=== PATIENT | female | born 1960 ===

== ENCOUNTER 2017-11-21 11:46 | Inpatient (IN) | payer OTHER ==
[2017-11-21 11:56] VITALS: BMI 33.2
[2017-11-21 11:59] VITALS: RESP 20
[2017-11-21] MEDS ORDERED: Sodium Chloride 0.9% 1,000 ML IV ONE (12:29)
[2017-11-21] MEDS ORDERED: Clindamycin 300 MG in Sodium Chloride 0.9% 50 ML IVPB STA (12:30)
[2017-11-21 12:46] LABS: BASO # 0.1 K/uL (0.0-0.2); BASO % 0.9 % (0.0-2.0); EOS % 0.2 % (0.0-4.0); LYMPH % 19.4 % (20.0-40.0); MEAN CELL VOLUME 89.7 fL (81.0-99.0); MEAN CORPUSCULAR HEMOGLOBIN 30.9 pg (27.0-31.0); MEAN CORPUSCULAR HGB CONC 34.5 g/dL (33.0-37.0); MEAN PLATELET VOLUME 9.4 fL (7.2-11.7); MONO # 1.2 K/uL (0.0-0.8); MONO % 7.4 % (0.0-10.0); NEUT # 11.3 K/uL (1.8-7.0); NEUT % 72.1 % (50.0-75.0); RBC 4.2 Mil/uL (3.80-5.20); WHITE BLOOD COUNT 15.7 K/uL (4.8-10.8)
[2017-11-21] MEDS ORDERED: Sodium Chloride 0.9% 1,000 ML ONE (12:48)
[2017-11-21 13:02] LABS: ALB/GLOB RATIO 1.1 (1.0-2.1); ALT/SGPT 18 U/L (9-52); AST/SGOT 43 U/L (14-36); BLOOD UREA NITROGEN 12 mg/dL (7-17); CALCIUM 9.2 mg/dl (8.6-10.4); GFR AFRICAN-AMERICAN > 60; GFR NON-AFRICAN AMERICAN > 60
[2017-11-21] MEDS ORDERED: Iodixanol 320 MG/ML 100 ML BOTTLE IV ONE (14:30)
--- NOTE | 2017-11-21 14:32 | C.PDOC ---
History Of Present Illness 57 y/o female presents to ED with c/o throat pain for 1 week. Patient states she was seen at [facility] 2 days ago, diagnosed with a peritonsillar abscess and had it drained in the ER and was discharged with antibiotics. Patient states pain persisted today and went to see PMD who advised she come to ed for further evaluation. Admits to decreased po intake secondary to pain. Denies fever, sob, chest pain, neck pain or headache. Time Seen by Provider: 11/21/17 12:07 Chief Complaint (Nursing): ENT Problem History/Exam Limitations: None Onset/Duration Of Symptoms: Days Current Symptoms Are (Timing): Still Present Past Medical History Reviewed: Historical Data, Nursing Documentation, Vital Signs Vital Signs: Last Vital Signs Temp 98.0 F 11/23/17 08:10 Pulse 58 L 11/23/17 08:10 Resp 20 11/23/17 08:10 BP 167/78 H 11/23/17 08:10 Pulse Ox 99 11/23/17 08:10 - Medical History PMH: No Chronic Diseases Surgical History: No Surg Hx Family History: States: No Known Family Hx - Social History Hx Alcohol Use: No Hx Substance Use: No - Immunization History Hx Tetanus Toxoid Vaccination: No Hx Influenza Vaccination: No Hx Pneumococcal Vaccination: No Review Of Systems Constitutional: Negative for: Fever, Chills ENT: Positive for: Throat Pain Gastrointestinal: Negative for: Nausea, Vomiting Musculoskeletal: Negative for: Neck Pain Skin: Negative for: Rash Physical Exam - Physical Exam Appears: Non-toxic, Other (uncomfortable) Skin: Warm, Dry, No Rash Head: Atraumatic, Normacephalic Eye(s): bilateral: Normal Inspection, EOMI Nose: Normal Oral Mucosa: Moist Throat: Erythema (right sided peritonsillar), No Drooling, Other (right sided peritonsillar swelling) Neck: Normal ROM, Supple Chest: Symmetrical Cardiovascular: Rhythm Regular Respiratory: Normal Breath Sounds, No Accessory Muscle Use, No Rales, No Rhonchi , No Wheezing Gastrointestinal/Abdominal: Soft, No Tenderness, No Guarding, No Rebound Extremity: Normal ROM Neurological/Psych: Oriented x3, Normal Speech, Normal Cognition ED Course And Treatment - Laboratory Results Result Diagrams: 11/21/17 12:42 11/21/17 12:42 O2 Sat by Pulse Oximetry: 98 (RA) Pulse Ox Interpretation: Normal - CT Scan/US CT neck Other Rad Studies (CT/US): Read By Radiologist, Radiology Report Reviewed CT/US Interpretation: PROCEDURE: CT NECK WITH CONTRAST. HISTORY: r/o peritonsillar abscess. COMPARISON: 474.0. TECHNIQUE: CT of the neck with intravenous contrast. Coronal and sagittal reformats generated. Intravenous contrast dose: 100 mL Visipaque. Radiation dose: DLP 474.09 mGy-cm. This CT exam was performed using one or more of the following dose reduction techniques : Automated exposure control, adjustment of the mA and/or kV according to patient size, and/or use of iterative reconstruction technique. FINDINGS: NASOPHARYNX: There is mild mass effect on the right posterior nasopharynx. No evidence of narrowing of the LV. SUPRAHYOID NECK: There is a 1.6 x 1.2 x 2.5 cm low-density mass with thick irregular peripheral rim in the right peritonsillar region and effacement of the right parapharyngeal fat. . There is also marked enlargement of the right palatine tonsil with mass effect and moderate narrowing of the oropharyngeal airway. There is also moderate enlargement of the lingual and left palatine tonsil. The oral cavity is obscured by extensive dental amalgam artifacts. No evidence of retropharyngeal fluid collection. INFRAHYOID NECK: No mass or enhancement in the larynx, hypopharynx, and supraglottic space. Vocal cords intact. GLANDS: Parotid and submandibular glands unremarkable. The right thyroid lobe and isthmus are normal. There is mild enlargement of the left thyroid lobe with retrosternal extension and an apparent 4.0 x 3.5 cm lower density nodule in the lower pole of the left thyroid gland. The trachea is deviated to the right without luminal narrowing. LYMPH NODES: There are enlarged right anterior and posterior triangle lymph nodes and enlarged left anterior triangle lymph nodes. CERVICAL SPINE: No fracture or focal lesion. Multilevel degenerative disc disease in the lower cervical spine. VASCULAR STRUCTURES: Unremarkable. OTHER FINDINGS: None. IMPRESSION: 1. Findings are compatible with acute tonsillitis and 1.6 x 1.2 x 2.5 cm right peritonsillar abscess with resultant mass effect, moderate narrowing of the oropharyngeal airway and reactive cervical lymphadenopathy, worse on the right. 2. Mild enlargement of the left thyroid lobe and retrosternal extension with a large nodule in the lower pole. Important findings were discussed with Dr. Flower in the ER on 11/21/2017 at 3:40 p.m. Progress Note: PT was seen and evaluated by at bedside requested patient to have CT scan. AFter CT, pt had bedside I&D preformed by Dr Jameson. CAse discussed with Dr Arredondo, agreed upon plan and admission. 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 - Scribe Statement The provider has reviewed the documentation as recorded by the Terrellibmarietta Lora All medical record entries made by the Payton were at my direction and personally dictated by me. I have reviewed the chart and agree that the record accurately reflects my personal performance of the history, physical exam, medical decision making, and the department course for this patient. I have also personally directed, reviewed, and agree with the discharge instructions and disposition.
--- NOTE | 2017-11-21 15:44 | CT ---
PROCEDURE: CT NECK WITH CONTRAST HISTORY: r/o peritonsillar abscess COMPARISON: 474.0 TECHNIQUE: CT of the neck with intravenous contrast. Coronal and sagittal reformats generated. Intravenous contrast dose: 100 mL Visipaque Radiation dose: DLP 474.09 mGy-cm This CT exam was performed using one or more of the following dose reduction techniques: Automated exposure control, adjustment of the mA and/or kV according to patient size, and/or use of iterative reconstruction technique. FINDINGS: NASOPHARYNX: There is mild mass effect on the right posterior nasopharynx. No evidence of narrowing of the LV. SUPRAHYOID NECK: There is a 1.6 x 1.2 x 2.5 cm low-density mass with thick irregular peripheral rim in the right peritonsillar region and effacement of the right parapharyngeal fat. . There is also marked enlargement of the right palatine tonsil with mass effect and moderate narrowing of the oropharyngeal airway. There is also moderate enlargement of the lingual and left palatine tonsil. The oral cavity is obscured by extensive dental amalgam artifacts. No evidence of retropharyngeal fluid collection. INFRAHYOID NECK: No mass or enhancement in the larynx, hypopharynx, and supraglottic space. Vocal cords intact. GLANDS: Parotid and submandibular glands unremarkable. The right thyroid lobe and isthmus are normal. There is mild enlargement of the left thyroid lobe with retrosternal extension and an apparent 4.0 x 3.5 cm lower density nodule in the lower pole of the left thyroid gland. The trachea is deviated to the right without luminal narrowing LYMPH NODES: There are enlarged right anterior and posterior triangle lymph nodes and enlarged left anterior triangle lymph nodes. CERVICAL SPINE: No fracture or focal lesion. Multilevel degenerative disc disease in the lower cervical spine. VASCULAR STRUCTURES: Unremarkable. OTHER FINDINGS: None. IMPRESSION: 1. Findings are compatible with acute tonsillitis and 1.6 x 1.2 x 2.5 cm right peritonsillar abscess with resultant mass effect, moderate narrowing of the oropharyngeal airway and reactive cervical lymphadenopathy, worse on the right. 2. Mild enlargement of the left thyroid lobe and retrosternal extension with a large nodule in the lower pole. Important findings were discussed with Dr. Flower in the ER on 11/21/2017 at 3:40 p.m.
[2017-11-21] MEDS ORDERED: Pneumococcal 23-Valent Vaccine IM ONE (18:13)
[2017-11-21] MEDS: Dextrose 5%/0.9% NS 1,000 ML IV SCH (18:35)
[2017-11-21] MEDS ORDERED: Clindamycin 600mg/50ml D5W 600 MG/50 ML VIAL IVPB SCH (19:00)
[2017-11-21] MEDS: Clindamycin 600mg/50ml NS 600 MG/50 ML BAG IVPB SCH (20:19)
[2017-11-21] MEDS: Acetaminophen 650mg/20.3ml solution UD PO PRN (22:11)
--- NOTE | 2017-11-21 23:42 | OP ---
PROCEDURE DATE: 11/21/2017 PREOPERATIVE DIAGNOSIS: Right peritonsillar abscess. POSTOPERATIVE DIAGNOSIS: Right peritonsillar abscess. PROCEDURE: Incision and drainage of right peritonsillar abscess. SURGEON: Dr. Connor Jameson. SIGNIFICANT FINDINGS: Right peritonsillar abscess. DESCRIPTION OF PROCEDURE: The patient was placed in a seated position, the right peritonsillar area was injected with lidocaine with epinephrine. An incision was made in the right peritonsillar area using an #11 blade. Sharp dissection was done, pus was noted to be coming down. Clamp was used to break up further loculations. Bleeding was controlled with time. The patient tolerated the procedure well. Connor Jameson MD
[2017-11-22] MEDS: Clindamycin 600mg/50ml NS 600 MG/50 ML BAG IVPB SCH ×3 (03:22→20:00)
[2017-11-22] MEDS: Dextrose 5%/0.9% NS 1,000 ML IV SCH ×3 (03:32→18:05)
[2017-11-22] MEDS ORDERED: Pneumococcal 23-Valent Vaccine SC ONE (10:00)
[2017-11-22] MEDS: Acetaminophen 650mg/20.3ml solution UD PO PRN (10:20)
[2017-11-23] MEDS: Dextrose 5%/0.9% NS 1,000 ML IV SCH ×4 (00:30→20:45)
[2017-11-23] MEDS: Clindamycin 600mg/50ml NS 600 MG/50 ML BAG IVPB SCH ×3 (03:16→19:45)
[2017-11-23] MEDS: Acetaminophen 650mg/20.3ml solution UD PO PRN ×2 (06:20→16:10)
--- NOTE | 2017-11-23 06:38 | HP ---
SUBJECTIVE: This is a 57-year-old female with no significant past medical history, presented to the office on the day of admission with swelling and painful swallowing and a large peritonsillar abscess. The patient was in the emergency room of [facility] 2 days prior to this admission where a peritonsillar abscess was drained. The patient continued to have pain and swelling and presented to the office on the day of admission. The patient was sent to emergency room where she was seen by ENT. The patient was started on IV antibiotics and she was admitted for further management after the incision and drainage of the abscess. Other review of system is negative. ALLERGIES: NO KNOWN ALLERGY. MEDICATIONS: Augmentin 875 twice a day. SOCIAL HISTORY: Positive for smoking. No EtOH or substance abuse. FAMILY HISTORY: Noncontributory. PHYSICAL EXAMINATION: GENERAL: The patient is not in any cardiopulmonary distress. VITAL SIGNS: With blood pressure 145/70, temperature 98.3, respiratory rate 20 and pulse 61. HEENT: Pupils equal, reactive to light. Normal-appearing mucosa of the conjunctivae, oropharynx and nasal membrane mucosa. The patient has a large swelling in the right side of the throat with tenderness of the upper cervical lymph nodes. NECK: Supple. No JVD. No carotid bruit. No lymph node. No thyromegaly. CHEST/LUNGS: Bilateral symmetrical expansion. Good air exchange. No rales, no rhonchi. CARDIOVASCULAR: PMI not localized. S1, S2. No additional sounds. ABDOMEN: Normoactive bowel sounds. No tenderness. No organomegaly. No masses. EXTREMITIES: No cyanosis, no clubbing, no edema. BALANCE ASSEMBLER: Alert, awake, oriented x3. No neurological deficit could be appreciated. ASSESSMENT: Peritonsillar abscess with difficulty swallowing and dehydration. PLAN: Continue the patient on IV fluid, clindamycin 600 IV q.8 hours. Clear liquid diet and advance as tolerated. David Arredondo MD
[2017-11-23] MEDS ORDERED: Pneumococcal 23-Valent Vaccine IM ONE (10:00)
[2017-11-24] MEDS: Clindamycin 600mg/50ml NS 600 MG/50 ML BAG IVPB SCH ×2 (03:09→11:53)
[2017-11-24] MEDS: Dextrose 5%/0.9% NS 1,000 ML IV SCH (07:00)
[2017-11-24 09:25] VITALS: BP 150/78; PULSE 59; TEMP 97.7; O2SAT 98
--- NOTE | 2017-11-24 12:26 | CP.PCM.PN ---
Subjective - Date & Time of Evaluation Date of Evaluation: 11/24/17 Time of Evaluation: 12:22 - Subjective Subjective: PT CLEARED FOR D/C TODAY PER DR. LANGFORD. PT'S VSS, AFEBRILE; TOLERATING SOFT DIET WELL; DENIES VOICE HOARSENESS AND DYSPHAGIA. PT TO CONTINUE CLINDA PO X7 DAYS WITH PROBIOTIC X10 DAYS. PT TO F/U WITH DR. LANGFORD WITHIN 1-[address] GUERRERO IN THE OFFICE WITHIN 1 WEEK. I DISCUSSED ALL D/C PLANS WITH PT AND SHE VERBALIZES UNDERSTANDING. NO FURTHER ORDER. -FOLLOW UP WITH DR. LANGFORD IN THE OFFICE WITHIN 1-2 WEEKS---CALL THE OFFICE TO MAKE YOUR APPOINTMENT. -FOLLOW UP WITH DR. GUERRERO (EARS, NOSE, THROAT DOCTOR) IN THE OFFICE WITHIN 1 WEEK---CALL THE OFFICE TOMORROW TO MAKE YOUR APPOINTMENT. -CONTINUE IBUPROFEN NEEDED FOR PAIN. -NEW PRESCRIPTIONS INCLUDE: 1) CLINDAMYCIN (ANTIBIOTIC)---TAKE 1 TABLET BY MOUTH THREE TIMES A DAY ( BREAKFAST, LUNCH, AND DINNER) FOR 7 DAYS---START TAKING THIS EVENING. 2) FLORASTOR (PROBIOTIC/VITAMIN FOR YOUR STOMACH WHILE ON THE ANTIBIOTIC)--- TAKE 1 CAPSULE BY MOUTH TWICE A DAY (MORNING AND EVENING) FOR 10 DAYS. -YOU MAY DO WARM WATER AND SALT GARGLE/MOUTH RINSE NEEDED TO HELP WITH ANY THROAT IRRITATION. -IF YOU HAVE ANY FURTHER QUESTIONS OR CONCERNS, FEEL FREE TO CONTACT DR. LANGFORD OR DR. GUERRERO. Objective - Vital Signs/Intake and Output Vital Signs (last 24 hours): Temp Pulse Resp BP Pulse Ox 97.7 F 59 L 20 150/78 98 11/24/17 08:22 11/24/17 08:22 11/24/17 08:22 11/24/17 08:22 11/24/17 08:22 Intake and Output: 11/24/17 11/24/17 06:59 18:59 Intake Total 2180 Balance 2180 - Medications Medications: Current Medications Acetaminophen (Tylenol 650mg/20.3ml Solution Ud) 650 mg PO Q6 PRN PRN Reason: Pain, moderate (4-7) Last Admin: 11/23/17 16:10 Dose: 650 mg Dextrose/Sodium Chloride (Dextrose 5%/0.9% Ns 1000 Ml) 1,000 mls @ 100 mls/hr IV .Q10H IRASEMA Last Admin: 11/24/17 07:00 Dose: Not Given Clindamycin Phosphate (Cleocin In Normal Saline) 600 mg in 50 mls @ 102 mls/hr IVPB Q8H IRASEMA PRN Reason: Protocol Last Admin: 11/24/17 11:53 Dose: 102 mls/hr - Labs Labs: 11/21/17 12:42 11/21/17 12:42
--- NOTE | 2017-11-25 03:29 | DS ---
REASON FOR ADMISSION: This is a 57-year-old female who was admitted for recurrent peritonsillar abscess. COURSE OF HOSPITALIZATION: The patient was started on IV antibiotics. The patient had an ENT consult by Dr. Jameson. The patient had incision and drainage of the abscess. She was able to swallow. The pain was decreasing. She was able to tolerate regular food on the day of discharge. The patient was given clindamycin during her admission. She was discharged on clindamycin p.o. for seven more days and to follow with ENT. FINAL DIAGNOSES: Peritonsillar abscess, pharyngitis, dehydration. [facility] MD Arnulfo
== END 2017-11-24 13:38 | disposition home or self-care (01) | DRG 57 ==
LOC: C.ER 11:46 → C.9E 15:37 → C.3T 16:20 → OBSVTOIN 11-23 13:52
PROVIDERS: ADMIT Internal Medicine; ATTEND Internal Medicine
PROC: 0C9PXZX Drainage of Tonsils, External Approach, Diagnostic (ICD-10-PCS; principal; 2017-11-23)
DX: J36 Peritonsillar abscess (principal); E86.0 Dehydration